=== PATIENT | male | born 1955 | race Caucasian/White ===

== ENCOUNTER 2025-01-01 07:54 | Day surgery (SDC) | payer MEDICARE, SELFPAY ==
[2025-01-01] VITALS (7 sets, daily range): BP systolic 103–131; BP diastolic 69–86; PULSE 49–63; RESP 16; TEMP 36.7–36.9; O2SAT 96–97; BMI 23.7
[2025-01-01] MEDS: SODIUM CHLORIDE 0.9 % (FLUSH) 10 ML SYRINGE IVF (08:36)
[2025-01-01] MEDS: LACTATED RINGERS 1000 ML 1,000 ML 100 ML IV (08:36)
--- NOTE | 2025-01-01 09:39 | W.PM.H&PU ---
History & Physical Update History & Physical Update H&P Reviewed and patient assessed: No changes noted
--- NOTE | 2025-01-01 09:45 | PM.GSPRC ---
Operative Note Date of procedure: 01/01/25 Pre-op diagnosis: 1. Symptomatic right inguinal hernia Post-op diagnosis: 1. Indirect right inguinal hernia. Type of Procedure: 1. Open right inguinal hernia repair with mesh. Indications: 69-year-old male was seen in clinic for evaluation of a right inguinal bulge. Patient noticed a bulge over a week prior to his presentation. The bulge was prominent when patient was active and decreased in size when he lied down. Patient occasionally had discomfort in the bulge. Patient is active and does exercise classes multiple times a week. On clinical exam with the patient standing up I was able to easily see a moderately sized right inguinal bulge overlying the right pubic tubercle. The bulge was reducible. With the patient standing up and doing Valsalva there was no evidence of left inguinal hernia. Given patient's symptoms and his active lifestyle as well as moderately sized inguinal hernia, an open right inguinal hernia repair was recommended. The procedure was discussed in detail. The risks associated procedure including infection, bleeding, nerve pain, hernia recurrence, and the need for additional procedures were all discussed with the patient, and he agreed to proceed. Procedure Description: After discussing the risks and benefits of the procedure, the patient signed informed consent.? The operative site was marked and the patient was brought to the operating room and placed on the operating table in supine position.? Care was taken to pad the patient's pressure points.?? The patient was then sedated by anesthesia.?? The operative site was then prepped and draped in the usual sterile fashion.? A time-out was then performed. Surgical site was prepped and draped in sterile fashion. Site of the incision was marked with a marking pen and local anesthetic was injected. An oblique incision was made just above and medial to the right inguinal ligament. Subcutaneous tissue was dissected to external obliques. Superficial subcutaneous vascular branches were clamped, divided and tied with 3-0 Vicryl ties. Small incision was made through the external oblique aponeurosis with scalpel. I then used Metzenbaum scissors to dissect under external obliques and extend my incision. Mosquito clamps were placed on the edges of external oblique exposing the inguinal floor. The right Ilioinguinal nerve was identified and was going through the plain of dissection. The nerve was divided proximally and distally and a 3 cm segment of it was excised. This was not sent to pathology. I then identified the spermatic cord and the hernia sac. I bluntly dissected subcutaneous tissues in order to place [place] drain around the cord structures. Cremasteric fibers were peeled off and dissected off the hernia sac and cord structures. This was an indirect hernia. The moderately sized hernia sac was from the spermatic cord bluntly and with cautery. The inguinal floor was strong. The indirect hernia sac was incised and examined from the inside. No intraabdominal organs were incarcerated in the hernia sac. A stitch using 2-0 Vicryl was placed near the base of the hernia sac through the sac and the hernia sac tied off. The hernia sac was excised and the cut edge was oversewn with Vicryl suture. Hernia sac was not sent to pathology. This was then pushed into preperitoneal space through the internal ring. Surgical field was examined for bleeding and hemostasis was achieved with cautery and Vicryl ties. A 10 cm Bard mesh onlay was also used for hernia repair. The mesh onlay was sutured in place with interrupted 0-0 Neurolon sutures to the conjoint tendon medially and shelving edge laterally, pubic tubercle inferiorly. Simple interrupted sutures were placed using 0-0 Neurolon at the base of internal inguinal ring making it only large enough to fit a tip of one finger through. Spermatic cord was placed back into scrotum. [place] drain was removed. External oblique aponeurosis was closed with a running 3-0 Vicryl. Additional local anesthetic was injected into subcutaneous tissues. Jose's fascia and subcutaneous tissue was re-approximated with interrupted Vicryl stitches. Skin incision was closed with 4-0 Monocryl subcuticular stitch. Steri strips and sterile dressing were applied over incision. All counts were correct at the end of the case. Patient tolerated this procedure well and was transferred to PACU in stable condition. Findings: Indirect hernia sac with no incarcerated structures in the hernia sac. Anesthesia: MAC and local Surgeon: Jax Patiño MD Estimated blood loss (mL): 5 Condition: stable Disposition: same day
[2025-01-01] MEDS: BUPIVACAINE 0.25% 30 ML 10 ML INJECTION (10:11)
[2025-01-01] MEDS: LIDOCAINE 1%-EPI 1:100,000 10 ML INFILTRATI (10:11)
--- NOTE | 2025-01-01 10:15 | SUR.OPER ---
PATIENT QUESTIONS ANSWERED SATISFACTORILY PREOPERATIVELY. PATIENT BROUGHT TO OR #4 PER CART. Patient positioned supine on OR #4 bed. The perioperative team supported arms bilaterally on arm boards. Final approval of positioning by surgeon.
--- NOTE | 2025-01-01 11:28 | P.ANES_ITS ---
Anesthesia Charges Start Date/Time Anesthesia Start Date: 01/01/25 Anesthesia Start Time: 09:52 Stop Date/Time Anesthesia Stop Date: 01/01/25 Anesthesia Stop Time: 11:27 Coding CPT Codes CPT Codes: ANESTH REPAIR OF HERNIA - 24577 ([id number]) P2 - PATIENT W/MILD SYST DISEASE, QK - MINE PRODUCTION ENGINEER 2-4 CNCRNT ANES PROC, QX - VP CARDIOVASCULAR SVC W/ MD MED DIRECTION
--- NOTE | 2025-01-01 11:28 | W.ANESCHARGE ---
Anesthesia Charges Start Date/Time Anesthesia Start Date: 01/01/25 Anesthesia Start Time: 09:52 Stop Date/Time Anesthesia Stop Date: 01/01/25 Anesthesia Stop Time: 11:27 Coding CPT Codes CPT Codes: ANESTH REPAIR OF HERNIA - 51547 ([id number]) P2 - PATIENT W/MILD SYST DISEASE, QK - MOSS PICKER 2-4 CNCRNT ANES PROC, QX - FORMING MACHINE ADJUSTER SVC W/ MD MED DIRECTION
--- NOTE | 2025-01-01 11:41 | W.ANESCHARGE ---
Anesthesia Charges Start Date/Time Anesthesia Start Date: 01/01/25 Anesthesia Start Time: 09:52 Stop Date/Time Anesthesia Stop Date: 01/01/25 Anesthesia Stop Time: 11:27 Summary Extremes of Age - Over 70 or under 1: MDA Coding CPT Codes CPT Codes: ANESTH REPAIR OF HERNIA - 26877 ([id number]) QK - TRANSMISSION SYSTEMS OPERATOR 2-4 CNCRNT ANES PROC, QX - SENIOR SSIS DEVELOPER SVC W/ MD MED DIRECTION, P2 - PATIENT W/MILD SYST DISEASE Additional Codes: Summary - Extremes of Age - Over 70 or under 1: MDA ([id number])
[2025-01-01] MEDS: HYDROCODONE-ACETAMIN 5-325 MG 1 TAB PO (12:10)
[2025-01-01] MEDS: ONDANSETRON 2 MG/ML inj 4 MG IVP (12:50)
== END 2025-01-01 13:15 | disposition home or self-care (01) ==
PROVIDERS: PCP Family Medicine; Visit Provider Surgery
PROC: (CPT 49505; principal; 2025-01-01 09:30)
DX: K40.90 Unilateral inguinal hernia, without obstruction or gangrene, not specified as recurrent (principal)
CPT/HCPCS: 49505; 00830; 99100; A9270; C1781; J0665; J0690; J1885; J2250; J2405; J2704; J3010; J3490; J7120